=== PATIENT | male | born 1965 | race Caucasian/White ===

== ENCOUNTER → 2017-01-01 | Day surgery (SDC) | payer OTHER ==
[~2017-01-01] VITALS: Ht 177.8 cm; Wt 90.9 kg
[2017-01-01 11:21] LABS: HCT 46.8 % (42.0-52.0); HGB 16.1 g/dl (13.2-18.0); MCH 31.6 pg (25.0-31.0); MCHC 34.4 g/dL (32.0-36.0); MCV 91.8 fL (78.0-100.0); MPV 10.7 fL (6.0-9.5); RBC 5.1 M/uL (4.70-6.00); RDW 12.8 % (11.5-14.0); WBC 7.2 K/uL (4.0-10.5)
[2017-01-01 11:29] LABS: ALBUMIN 4.5 g/dL (3.5-5.0); BILIRUBIN - TOTAL 0.5 mg/dL (0.1-1.0); CREATININE 0.9 mg/dL (0.7-1.2); POTASSIUM 4.4 mmol/L (3.5-5.1); TOTAL PROTEIN 7.5 g/dL (6.4-8.3)
== END | disposition home or self-care (01) ==
LOC: FAS 07:37 → FIS 07:37 → FAS 09:00
PROVIDERS: Surgery
DX: K29.50 Unspecified chronic gastritis without bleeding (principal); I10 Essential (primary) hypertension; K21.9 Gastro-esophageal reflux disease without esophagitis; J30.9 Allergic rhinitis, unspecified; E78.00 Pure hypercholesterolemia, unspecified; Z72.89 Other problems related to lifestyle; Z88.0 Allergy status to penicillin; Z88.1 Allergy status to other antibiotic agents
CPT/HCPCS: 36415; 78227; 80053; 88305; J2405; J2704

== ENCOUNTER 2017-01-04 04:40 | Emergency (ER) | payer OTHER ==
[2017-01-04 06:13] LABS: BASOPHIL 0.4 % (0-2); EOSINOPHIL 2.7 % (0-5); HGB 15.7 g/dl (13.2-18.0); LYMPHOCYTE 24.4 % (15-48); MCH 31.5 pg (25.0-31.0); MCHC 34.9 g/dL (32.0-36.0); MCV 90.2 fL (78.0-100.0); MONOCYTE 7.3 % (0-12); MPV 10.2 fL (6.0-9.5); NEUTROPHIL 65.2 % (41-80); PLT 273 K/uL (150-400); RBC 4.99 M/uL (4.70-6.00); RDW 12.4 % (11.5-14.0); WBC 5.2 K/uL (4.0-10.5)
[2017-01-04 06:36] LABS: ALBUMIN 4.4 g/dL (3.5-5.0); BILIRUBIN - TOTAL 0.4 mg/dL (0.1-1.0); CREATININE 0.8 mg/dL (0.7-1.2); GLOBULIN (CALCULATION) 2.6 g/dL (2.2-4.2); POTASSIUM 4.2 mmol/L (3.5-5.1)
[2017-01-04 07:22] LABS: BILIRUBIN NEGATIVE (NEGATIVE); BLOOD NEGATIVE Ery/uL (NEGATIVE); CLARITY CLEAR (CLEAR); COLOR YELLOW (YELLOW); GLUCOSE (U) NORMAL (NORMAL); KETONE (U) NEGATIVE (NEGATIVE); LEUKOCYTES NEGATIVE Leu/uL (NEGATIVE); NITRITE NEGATIVE (NEGATIVE); PROTEIN NEGATIVE (NEGATIVE); SPECIFIC GRAVITY <=1.005 (1.001-1.030); UROBILINOGEN 0.2 mg/dL (0.2-1.0)
== END 2017-01-04 08:34 | disposition home or self-care (01) ==
LOC: FER 04:40
PROVIDERS: Emergency Medicine Emergency Medical Services
DX: I10 Essential (primary) hypertension (principal); R53.81 Other malaise; R53.83 Other fatigue; Z90.49 Acquired absence of other specified parts of digestive tract; Z88.0 Allergy status to penicillin; Z88.8 Allergy status to other drugs, medicaments and biological substances
CPT/HCPCS: 36415; 70450; 71010; 80053; 81003; 84484; 85025; 85379; 93005; A9537; J2405; J2805; J2930

== ENCOUNTER 2021-03-11 02:29 | Emergency (ER) | payer OTHER ==
[~2021-03-11 02:29] MED LIST: COZAAR100 MG PO; COZAAR50 MG PO; CRESTOR5 MG PO; LEVSIN-SL0.125 M1 PO; NORVASC 10MG TA10 MG PO; PHENERGAN6.25 MG/5 PO; PRILOSEC20 MG PO; PROBIOTIC1 EAC1 PO; PROMETHAZINE/C120 ML PO; PROTONIX 40MG T40 MG PO; WELCHOL625 MG PO; ZOFRAN ODT4 MG SL
[2021-03-11 03:14] LABS: PTT 27.8 SECONDS (24.4-34.7)
[2021-03-11 03:15] LABS: D-DIMER 0.36 ug/mLFEU (0.00-0.41); INR 0.92 (0.9-1.2); PROTHROMBIN TIME 11.8 SECONDS (11.8-13.4)
[2021-03-11 03:17] LABS: BASOPHIL 0.4 % (0-2); EOSINOPHIL 2.8 % (0-5); HCT 44.7 % (42.0-52.0); HGB 15.1 g/dl (13.2-18.0); LYMPHOCYTE 42.6 % (15-48); MCH 30.7 pg (25.0-31.0); MCHC 33.8 g/dL (32.0-36.0); MCV 90.9 fL (78.0-100.0); MPV 10.2 fL (6.0-9.5); NEUTROPHIL 47.9 % (41-80); NRBC 0; PLT 334 K/uL (150-400); RBC 4.92 M/uL (4.70-6.00); RDW 12.3 % (11.5-14.0); WBC 9.4 K/uL (4.0-10.5)
[2021-03-11 03:20] LABS: ALBUMIN 4.2 g/dL (3.4-5.0); BILIRUBIN - TOTAL 0.4 mg/dL (0.2-1.0); BUN/CREAT RATIO (CALC) 8.5 RATIO; CREATININE 0.94 mg/dL (0.67-1.17); GLOBULIN (CALCULATION) 3.7 g/dL; POTASSIUM 3.6 mmol/L (3.5-5.1); TOTAL PROTEIN 7.9 g/dL (6.4-8.2)
[2021-03-11 04:01] LABS: LACTIC ACID 2.2 mmol/L (0.4-1.9)
== END 2021-03-11 05:54 | disposition home or self-care (01) ==
LOC: FER 02:29
PROVIDERS: Emergency Medicine Emergency Medical Services
DX: R07.89 Other chest pain (principal); R11.0 Nausea; R10.84 Generalized abdominal pain; I10 Essential (primary) hypertension; E78.5 Hyperlipidemia, unspecified; Z88.1 Allergy status to other antibiotic agents; Z88.5 Allergy status to narcotic agent; Z88.0 Allergy status to penicillin; Z79.899 Other long term (current) drug therapy
CPT/HCPCS: 36415; 71045; 74018; 80053; 83605; 83690; 84484; 85025; 85379; 85610; 85730; 93005; C9113; J1885

== ENCOUNTER → 2022-02-24 | Day surgery (SDC) | payer OTHER ==
[~2022-02-24] VITALS: Ht 177.8 cm; Wt 94.5 kg
[~2022-02-24] MED LIST changes: +MOTRIN600 MG PO; +VITAMIN B-121000 MC1 PO; +VITAMIN D3125 MC2 PO
[2022-02-24 09:12] LABS: HCT 47.4 % (42.0-52.0); HGB 16.3 g/dl (13.2-18.0); MCH 30.9 pg (25.0-31.0); MCHC 34.4 g/dL (32.0-36.0); MCV 89.9 fL (78.0-100.0); MPV 9.8 fL (6.0-9.5); RBC 5.27 M/uL (4.70-6.00); RDW 12.7 % (11.5-14.0); WBC 10.1 K/uL (4.0-10.5)
[2022-02-24 09:35] LABS: ALBUMIN 4.4 g/dL (3.4-5.0); BILIRUBIN - TOTAL 0.5 mg/dL (0.2-1.0); BUN/CREAT RATIO (CALC) 9.9 RATIO; CREATININE 1.01 mg/dL (0.67-1.17); GLOBULIN (CALCULATION) 3.7 g/dL; POTASSIUM 3.7 mmol/L (3.5-5.1); TOTAL PROTEIN 8.1 g/dL (6.4-8.2)
== END | disposition home or self-care (01) ==
LOC: FAS 08:28
PROVIDERS: Surgery
DX: Z12.11 Encounter for screening for malignant neoplasm of colon (principal); Z86.010 Personal history of colon polyps; I10 Essential (primary) hypertension; G47.30 Sleep apnea, unspecified; Z99.89 Dependence on other enabling machines and devices; Z79.899 Other long term (current) drug therapy; Z88.0 Allergy status to penicillin; Z88.1 Allergy status to other antibiotic agents; Z90.49 Acquired absence of other specified parts of digestive tract
CPT/HCPCS: 36415; 80053; J2704; J7120